=== PATIENT | male | born 1990 | race Caucasian/White ===

== ENCOUNTER 2017-02-08 15:11 | Emergency (ER) | payer BC, OTHER ==
[~2017-02-08] VITALS: Ht 182.9 cm; Wt 128.0 kg
[~2017-02-08 15:11] MED LIST: CEPH500C2 PO; SULF-183 PO
[2017-02-08 15:13] VITALS: Ht 182.9 cm; Wt 128.0 kg
--- NOTE | 2017-02-08 16:26 | DIAGNOSTIC IMAGING REPORT ---
RIGHT FOOT MIN 3 VIEWS ROUTINE CLINICAL HISTORY: Right foot pain following injury. COMPARISON: Right ankle radiographs April 19, 2008. FINDINGS: Tarsometatarsal joints are intact. There is no acute fracture within the right foot. Accessory ossicle along the proximal navicular is noted. IMPRESSION: No acute fracture or dislocation of the right foot. Electronically signed by: Jayson Nichole M.D. 02/08/2017 4:25 PM Dictated Date/Time: 02/08/2017 4:23 PM
[2017-02-08 16:38] VITALS: BP 148/91; PULSE 78; TEMP 36.7; O2SAT 98
--- NOTE | 2017-02-09 14:35 | EMERGENCY ROOM VISIT NOTE ---
ED Visit Note First contact with patient: 15:18 Chief Complaint: Right foot pain. History of Present Illness: Mr. Kiran is a 26-year-old white male who ambulates into the ED complaining of of right foot pain over the proximal aspect of the third and fourth metatarsals and over the middle and lateral cuneiform tarsals. Patient reports approximately 2.5 hours ago he was at work and accidentally dropped a heavy object; weight 50-60 pounds, on his foot. Since then he has had constant pain in this area. He describes the pain as a deep achy sensation. He rates his discomfort 4/10. The pain is nonradiating. The pain worsens with palpation and weightbearing. He has not identified any alleviating factors related to the pain. He has not taken any medications for pain prior to arrival at the hospital. He denies any associated ankle pain, other foot/toe pain, foot weakness/numbness/tingling. Additionally he denies any previous significant injuries or surgeries to this area. Review of Systems: As noted above in history of present illness. Past Medical History: Patient denies. Current Medications: Patient denies. Allergies to Medications: Patient denies. Social History: Patient is currently employed; he feels safe in his home environment; he denies tobacco use; he admits to alcohol use. Physical Examination: Vital Signs: Date Time Temp Pulse Resp B/P (MAP) Pulse Ox O2 Delivery O2 Flow Rate FiO2 02/08/17 16:38 36.7 78 18 148/91 98 02/08/17 16:37 78 18 148/91 98 Room Air 02/08/17 15:13 36.7 83 18 156/98 96 Room Air GENERAL: 26-year-old male in mild distress due to pain, nontoxic-appearing, afebrile and hemodynamically stable. NEUROLOGICAL: Awake, alert and oriented to person, place and time. Answering questions appropriately and following commands. Normal gait. Good hand eye coordination. No focal motor sensory deficits. SKIN: Warm, dry and pink. No soft tissue eruptions or trauma noted. RIGHT FOOT: No gross bony deformity. No tenderness around the ankle or the ligamentous structures. Over the foot he has mild tenderness over the proximal aspect of the third and fourth metatarsals and the lateral cuneiform tarsal. There is minimal swelling in this area. I do not appreciate any bony deformity or crepitus. Full range of motion in plantar flexion and dorsiflexion of the ankle and flexion and extension of all toes. Throughout the foot the skin was warm and pink and capillary refill is brisk. He was able to distinguish light sensations through all dermatomes of the foot. ED Course: Patient is assessed as noted above. Patient's medication list was reviewed. Right Foot X-Rays: Were read by myself and the radiologist showing no acute fractures or dislocations. Radiologist does note an accessory ossicle along the proximal navicular tarsal. Patient was offered pain medications, ice, postop shoe and crutches and refused. Patient was educated about today's findings and instructed on his treatment plan ; he verbalized understanding and agreement with this plan. Clinical Impression: Right foot pain. Work related injury. Decision-Making: Initially my differential diagnosis I considered fracture, dislocation, subluxation, contusion and other causes. Disposition: Patient discharged home in stable condition; prior to departure patient was reassessed and subjectively reported he was feeling the same. Plan: Comfort measures including rest, ice, elevation, light duty at work, alternating ibuprofen and acetaminophen were discussed with the patient. Patient was encouraged to follow-up with Workmen's Compensation for recheck in 3 -4 days. Patient was encouraged and signed to do light duty for the next 3-4 days or until pain free. Patient was encouraged return ED for worsening/uncontrolled pain, uncontrolled swelling, foot weakness/numbness/tingling or any new/concerning symptoms.
== END 2017-02-08 16:39 | disposition home or self-care (01) ==
LOC: C.EDB 15:12 → C.EDD 16:39
DX: S99.921A Unspecified injury of right foot, initial encounter (principal); M79.671 Pain in right foot; W20.8XXA Other cause of strike by thrown, projected or falling object, initial encounter; Y99.0 Civilian activity done for income or pay

== ENCOUNTER 2017-10-31 20:40 | Emergency (ER) | payer OTHER ==
[~2017-10-31] VITALS: Ht 182.9 cm; Wt 135.9 kg
[2017-10-31 20:50] VITALS: TEMP 36.7; Ht 182.9 cm; Wt 135.9 kg
--- NOTE | 2017-10-31 22:29 | EMERGENCY ROOM VISIT NOTE ---
History Report prepared by Ruchi: Dale Stevens Under the Supervision of: Dr. Doron Fuller M.D. First contact with patient: 22:19 Chief Complaint: GI ASSESSMENT Stated Complaint: NAUSEA, VOMITING, DIARRHEA, ABD PAIN, BLACK STOOL Nursing Triage Summary: Abdominal pain, nausea and vomiting that started several days ago, worse tonight History of Present Illness The patient is a 26 year old male who presents to the Emergency Room with complaints of constant abdominal pressure beginning two days ago. Patient reports the pain is epigastric and moderate nature. The patient states he has also been experiencing diarrhea and vomiting since Tuesday. He reports he has vomited 30-40 times after he "ate some bad sauerkraut and drank beer this weekend at a [employer] transport [employer]". The patient notes his stools have been black, and he took Pepto-Bismol. He states he was not able to keep the Pepto Bismol down because eating and drinking causes him to vomit. The patient reports he felt warm, but did not check his temperature. 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 The patient denies surgery on his abdomen and testicular pain. Source of History: patient Onset: two days ago Position: abdomen Quality: pressure Timing: constant Associated Symptoms: + vomiting, + diarrhea Note: Associated symptoms: black stool Denies: testicular pain Review of Systems See HPI for pertinent positives and negatives. A total of ten systems were reviewed and were otherwise negative. Past Medical & Surgical Medical Problems: (1) No pertinent past medical history Family History Diabetes mellitus Hypertension Social History Smoking Status: Never Smoker Smokeless Tobacco Use: No Drug Use: cocaine Marital Status: Housing Status: lives with significant other Occupation Status: employed Current/Historical Medications Scheduled Ondasetron Odt (Zofran Odt), 4 MG SL TID Scheduled PRN Acetaminophen (Tylenol), 1,000 MG PO DIRECTED PRN for Pain or Fever Bismuth Subsalicylate (Pepto-Bismol), 1 DOSE PO DIRECTED PRN for UPSET STOMACH Allergies Coded Allergies: No Known Allergies (Verified , 10/31/17) Physical Exam Vital Signs Date Time Temp Pulse Resp B/P (MAP) Pulse Ox O2 Delivery O2 Flow Rate FiO2 11/01/17 00:15 71 20 154/89 99 10/31/17 22:52 66 20 176/101 98 Room Air 10/31/17 20:50 36.7 87 18 152/90 96 Room Air Physical Exam Physical Exam GENERAL: He is oriented to person, place, and time. He appears well-developed and well-nourished. He does not appear distressed. ____ HENT: Exam performed. Head: Normocephalic and atraumatic. Right Ear: External ear normal. No mastoid tenderness. Left Ear: External ear normal. No mastoid tenderness. Mouth/Throat: The oropharynx is clear and moist. No trismus in the jaw. No dental abscesses or uvula swelling. No oropharyngeal exudate or tonsillar abscesses. ____ EYES: Conjunctivae and EOM are normal. Pupils are equal, round, and reactive to light. Right eye exhibits no discharge. Left eye exhibits no discharge. No scleral icterus. ____ NECK: Normal range of motion. Neck supple. No JVD present. No spinous process tenderness present. No carotid bruit present. No rigidity. No tracheal deviation and normal range of motion present. No Brudzinski's sign and no Kernig 's sign noted. ____ CV: Normal rate, regular rhythm, normal heart sounds and intact distal pulses. There is no peripheral edema. Palpable radial pulses bue. ____ PULM/CHEST: Effort normal and breath sounds normal. No respiratory distress. No stridor. He has no wheezes. He has no rales. Chest Wall: He exhibits no tenderness. ____ ABD: The abdomen is soft. Bowel sounds are normal. He has no distension. No mass is present. There is epigastric tenderness. There is no rebound, no guarding, no Villagomez's sign and no tenderness at McBurney's point. Rovsig negative MUSC/SKEL: Normal range of motion. There is no peripheral edema, tenderness or deformity. LYMPH: No cervical adenopathy. ____ NEURO: He is alert and oriented to person, place, and time. He has normal strength. No cranial nerve deficit or sensory deficit. Coordination and gait normal. GCS eye subscore is 4. GCS verbal subscore is 5. GCS motor subscore is 6. Cerebellar tests wnl. ____ SKIN: Skin is warm and dry. He is not diaphoretic. ____ PSYCH: He has a normal mood and affect. His behavior is normal. Judgment and thought content normal. ____ Medical Decision & Procedures ER Provider Diagnostic Interpretation: X-ray: Per my interpretation, radiologist review. PA CHEST WITH ABDOMINAL SERIES CLINICAL HISTORY: Epigastric abdominal pain. FINDINGS: 2 PA chest radiographs are compared to study dated 08/29/2008. The examination is degraded by apical lordotic positioning. The cardiomediastinal silhouette is unremarkable. The lungs and pleural spaces are clear. No pneumothorax is seen. The bony thorax is grossly intact. Supine and erect abdominal radiographs are obtained. No prior studies are available for comparison at the time of dictation. There is a nonobstructed abdominal bowel gas pattern. No evidence of intraperitoneal free air is seen. There are no abnormal abdominal calcifications. A small phlebolith is seen in the left hemipelvis. The lumbosacral spine and bony pelvis appear intact. IMPRESSION: 1. No active disease in the chest. 2. Nonobstructed abdominal bowel gas pattern. Electronically signed by: Fabricio Redmond M.D. 10/31/2017 11:09 PM Dictated Date/Time: 10/31/2017 11:08 PM Laboratory Results 10/31/17 22:39 Red Blood Count 6.15, Mean Corpuscular Volume 81.0, Mean Corpuscular Hemoglobin 29.1, Mean Corpuscular Hemoglobin Concent 35.9, Mean Platelet Volume 9.6, Neutrophils (%) (Auto) 58.9, Lymphocytes (%) (Auto) 22.7, Monocytes (%) (Auto) 14.4, Eosinophils (%) (Auto) 2.9, Basophils (%) (Auto) 0.5, Neutrophils # (Auto ) 5.22, Lymphocytes # (Auto) 2.01, Monocytes # (Auto) 1.28, Eosinophils # (Auto ) 0.26, Basophils # (Auto) 0.04 10/31/17 22:39 Test 10/31/17 22:39 White Blood Count 8.86 K/uL (4.8-10.8) Red Blood Count 6.15 M/uL (4.7-6.1) Hemoglobin 17.9 g/dL (14.0-18.0) Hematocrit 49.8 % (42-52) Mean Corpuscular Volume 81.0 fL (80-100) Mean Corpuscular Hemoglobin 29.1 pg (25-34) Mean Corpuscular Hemoglobin Concent 35.9 g/dl (32-36) Platelet Count 234 K/uL (130-400) Mean Platelet Volume 9.6 fL (7.4-10.4) Neutrophils (%) (Auto) 58.9 % Lymphocytes (%) (Auto) 22.7 % Monocytes (%) (Auto) 14.4 % Eosinophils (%) (Auto) 2.9 % Basophils (%) (Auto) 0.5 % Neutrophils # (Auto) 5.22 K/uL (1.4-6.5) Lymphocytes # (Auto) 2.01 K/uL (1.2-3.4) Monocytes # (Auto) 1.28 K/uL (0.11-0.59) Eosinophils # (Auto) 0.26 K/uL (0-0.5) Basophils # (Auto) 0.04 K/uL (0-0.2) RDW Standard Deviation 38.8 fL (36.4-46.3) RDW Coefficient of Variation 13.1 % (11.5-14.5) Immature Granulocyte % (Auto) 0.6 % Immature Granulocyte # (Auto) 0.05 K/uL (0.00-0.02) Anion Gap 8.0 mmol/L (3-11) Est Creatinine Clear Calc Drug Dose 130.8 ml/min Estimated GFR () 94.8 Estimated GFR (Non- 81.8 BUN/Creatinine Ratio 12.2 (10-20) Calcium Level 8.5 mg/dl (8.5-10.1) Total Bilirubin 0.7 mg/dl (0.2-1) Direct Bilirubin 0.2 mg/dl (0-0.2) Aspartate Amino Transf (AST/SGOT) 24 U/L (15-37) Alanine Aminotransferase (ALT/SGPT) 29 U/L (12-78) Alkaline Phosphatase 61 U/L (45-117) Total Protein 7.4 gm/dl (6.4-8.2) Albumin 3.7 gm/dl (3.4-5.0) Lipase 89 U/L (73-393) Laboratory results reviewed by me Medications Administered Medications (Trade) Dose Ordered Sig/Anastasia Route Start Time Stop Time Status Last Admin Dose Admin Sodium Chloride 1,000 ml @ 999 mls/hr Q1H1M STAT IV 10/31/17 22:31 10/31/17 23:31 DC 10/31/17 22:31 999 MLS/HR Ondansetron HCl (Zofran Inj) 4 mg NOW STAT IV 10/31/17 22:31 10/31/17 22:34 DC 10/31/17 22:48 4 MG ED Course 5: The patient was evaluated in room B04B. A complete history and physical exam was performed. 2230: Ordered Ondansetron HCl 4mg IV, Sodium Chloride 1000 ml @ 999 mls/hr IV 2329: Vitals are stable. Repeat abdominal exam shows no tenderness of the abdomen. Patient feels better after fluid. Labs are imaging are wnl. No physical exam findings are concerning for cholecystitis or appendicitis. DISCHARGE - Plan of care discussed with patient and questions answered. The patient was given both verbal and printed discharge instructions. The patient verbalized understanding and ability to comply. The patient is to seek outpatient follow up as noted in the discharge instructions. The patient verbalized understanding and ability to comply. The patient is discharged in stable condition. The patient was instructed to return for worsening symptoms. Medical Decision Vitals are stable. Repeat abdominal exam shows no tenderness of the abdomen. Patient feels better after fluid. Labs are imaging are wnl. No physical exam findings are concerning for cholecystitis or appendicitis. DISCHARGE - Plan of care discussed with patient and questions answered. The patient was given both verbal and printed discharge instructions. The patient verbalized understanding and ability to comply. The patient is to seek outpatient follow up as noted in the discharge instructions. The patient verbalized understanding and ability to comply. The patient is discharged in stable condition. The patient was instructed to return for worsening symptoms. Medication Reconcilliation Current Medication List: was personally reviewed by me Blood Pressure Screening Patient's blood pressure: Elevated blood pressure Blood pressure disposition: Elevated BP felt to be situational Impression Primary Impression: Abdominal pain Scribe Attestation The scribe's documentation has been prepared under my direction and personally reviewed by me in its entirety. I confirm that the note above accurately reflects all work, treatment, procedures, and medical decision making performed by me. The chart was completed utilizing [employer] voice recognition software. Grammatical errors, random word insertions, pronoun errors, and incomplete sentences are an occasional consequence of this system due to software limitations, ambient noise, and hardware issues. Any formal questions or concerns about the content, text, or information contained within the body of this dictation should be directly addressed to the physician for clarification. Departure Information Dispostion Home / Self-Care Prescriptions Ondasetron Odt (ZOFRAN ODT) 4 Mg Tab 4 MG SL TID for Nausea, #30 TAB Prov: Doron Fuller M.D. 10/31/17 Referrals Edu Rhodes M.D. (PCP) Forms HOME CARE DOCUMENTATION FORM, IMPORTANT VISIT INFORMATION Patient Instructions Abdominal Pain - [facility], Pending Sale To [facility] Additional Instructions Return to the emergency department immediately if you develop fever greater than 100.4, bloody stools, blood in your urine, vomit blood, vomit black, or your pain worsens. Problem Qualifiers Primary Impression: Abdominal pain Abdominal location: epigastric Qualified Codes: R10.13 - Epigastric pain
[2017-10-31] MEDS ORDERED: SODIUM CHLORIDE 0.9% 1000ML 1,000 ML IV STA (22:31)
[2017-10-31] MEDS ORDERED: ONDANSETRON INJ 2 MG/ML 2 ML VIAL IV STA (22:31)
[2017-10-31 22:48] LABS: BASO % 0.5 %; BASO ABS # 0.04 K/uL (0-0.2); EOS % 2.9 %; EOS ABS # 0.26 K/uL (0-0.5); HEMATOCRIT 49.8 % (42-52); HEMOGLOBIN 17.9 g/dL (14.0-18.0); IG# 0.05 K/uL (0.00-0.02); LYMPH % 22.7 %; LYMPH ABS # 2.01 K/uL (1.2-3.4); MEAN CORPUSCULAR HEMOGLOBIN 29.1 pg (25-34); MEAN CORPUSCULAR HGB CONC 35.9 g/dl (32-36); MEAN PLATELET VOLUME 9.6 fL (7.4-10.4); MONO % 14.4 %; MONO ABS # 1.28 K/uL (0.11-0.59); NEUT % 58.9 %; NEUT ABS # 5.22 K/uL (1.4-6.5); PLATELET COUNT 234 K/uL (130-400); RED CELL DISTRIBUTION WIDTH CV 13.1 % (11.5-14.5); RED CELL DISTRIBUTION WIDTH SD 38.8 fL (36.4-46.3); WHITE BLOOD COUNT 8.86 K/uL (4.8-10.8)
[2017-10-31 23:09] LABS: ALBUMIN 3.7 gm/dl (3.4-5.0); CALCIUM 8.5 mg/dl (8.5-10.1); CREATININE 1.2 mg/dl (0.60-1.40); POTASSIUM 3.6 mmol/L (3.5-5.1)
[2017-10-31] MEDS ORDERED: TYLOTC500 PO (23:09)
[2017-10-31] MEDS ORDERED: BISM262S7 PO (23:09)
--- NOTE | 2017-10-31 23:11 | DIAGNOSTIC IMAGING REPORT ---
PA CHEST WITH ABDOMINAL SERIES CLINICAL HISTORY: Epigastric abdominal pain. FINDINGS: 2 PA chest radiographs are compared to study dated 08/29/2008. The examination is degraded by apical lordotic positioning. The cardiomediastinal silhouette is unremarkable. The lungs and pleural spaces are clear. No pneumothorax is seen. The bony thorax is grossly intact. Supine and erect abdominal radiographs are obtained. No prior studies are available for comparison at the time of dictation. There is a nonobstructed abdominal bowel gas pattern. No evidence of intraperitoneal free air is seen. There are no abnormal abdominal calcifications. A small phlebolith is seen in the left hemipelvis. The lumbosacral spine and bony pelvis appear intact. IMPRESSION: 1. No active disease in the chest. 2. Nonobstructed abdominal bowel gas pattern. Electronically signed by: Fabricio Redmond M.D. 10/31/2017 11:09 PM Dictated Date/Time: 10/31/2017 11:08 PM
[2017-10-31 23:12] LABS: TOTAL PROTEIN 7.4 gm/dl (6.4-8.2)
[2017-10-31] MEDS ORDERED: ONDA4TAB10 SL (23:35)
[2017-11-01 00:15] VITALS: BP 154/89; PULSE 71; O2SAT 99
== END 2017-11-01 00:16 | disposition home or self-care (01) ==
LOC: C.EDB 20:41
DX: R10.13 Epigastric pain (principal)